=== PATIENT | male | born 1960 | race African-American/Black ===

== ENCOUNTER 2024-06-15 09:11 | Emergency (ER) | payer OTHER, SELFPAY ==
--- NOTE | ~2024-06-15 | XR_ITS ---
EXAMINATION: XR chest 2V DATE: 06/15/2024 10:22 INDICATION: Cough and shortness of breath TECHNIQUE: PA and lateral views of the chest were obtained. COMPARISON: Chest radiograph dated 07/06/2015 FINDINGS: Unchanged small calcified nodule at the right upper lung zone consistent with old granulomatous disea se. The lungs are otherwise clear with no focal airspace opacities, pulmonary edema, pleural effusion or pneumothorax. The cardiomediastinal silhouette is normal. Visualized bones and soft tissues are u nremarkable. IMPRESSION: 1. No acute cardiopulmonary disease. Reviewed, dictated and finalized at location A. 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
[2024-06-15 09:23] VITALS: BP 118/70; PULSE 82; RESP 16; TEMP 35.9; O2SAT 100
--- NOTE | 2024-06-15 09:44 | ED.URI ---
HPI - URI/Sore Throat General Chief Complaint: Upper Respiratory Infection Stated Complaint: SOB/COUGH Time Seen by Provider: 06/15/24 09:44 Source: patient, RN notes reviewed and old records reviewed Mode of arrival: ambulatory Limitations: no limitations History of Present Illness HPI Narrative: 63 year old male who presents to [facility] care with complaints of cough and shortness of breath for the past 3-4 days. He states that he had Influenza on the 06 of June and did receive Tamiflu.Patient reports that he has an old Albuterol inhaler at home and he did use it yesterday. He has also been taking Mucinex max daily. MD elicited complaint: cough and other (shortness of breath) Pertinent past history: other (recent influenza A) Onset (ago): day(s) (3-4) Severity: moderate Able to tolerate fluids by mouth: Yes Treatments prior to arrival: other (Mucinex and used inhaler he had at home yesterday) Related Data Home Medications ?Medication ?Instructions ?Recorded ?Confirmed ?Last Taken ?Type albuterol sulfate 90 mcg/actuation 1 puff inhalation Q4H PRN 04/23/19 05/07/19 Unknown History aerosol inhaler spironolactone 25 mg tablet mg 06/15/24 Unknown History Allergies Allergy/AdvReac Type Severity Reaction Status Date / Time No Known Allergies Allergy Verified 06/15/24 09:25 Review of Systems Review of Systems: CONSTITUTIONAL: Denies malaise, chills, sweats, or fever. EYES: Denies visual changes, redness, or discharge. ENT: Reports rhinorrhea, congestion, sinus pain,no otalgia and no sore throat. CARDIOVASCULAR: Denies chest pain, palpitations, or edema. RESPIRATORY: Reports cough.? Reports dyspnea at rest and with exertion. GASTROINTESTINAL: Denies abdominal pain, nausea, vomiting, diarrhea SKIN: Denies rash or itching. MUSCULOSKELETAL: Denies myalgia. NEUROLOGIC: Denies headache. All systems reviewed & are unremarkable except as noted in HPI and below PMFSH Past Medical History Medical History (Updated 06/16/24 @ 08:14 by Wendy Del Cid NP) BPH (benign prostatic hyperplasia) Hyperlipidemia Hypertension Family History Family History Mother Patient's mother is , Onset Age: 54 Father Family history of cardiovascular disease, Onset Age: 72 Social History Social History (Updated 06/16/24 @ 08:15 by Wendy Del Cid NP) Smoking status: Never smoker Alcohol intake: never Substance use type: does not use Living arrangements: with family Gender identity (if verbalized by the patient): Male Comments At time of signature, agree with nursing past medical, surgical, social and family history. There is no relevant family history pertinent to the presenting complaint Exam Narrative: GENERAL: ill-appearing, well-nourished, and in no acute distress. HEAD: Normocephalic EYES: PERRLA, conjunctivae clear ENT: Nares clear, turbinates edematous and erythematous, clear discharge. Mucous membranes moist. TM pearly ross with dull light reflex bilaterally; no tragal tenderness. Oropharynx erythematous without lesions. Tonsils not enlarged and without exudate, no drooling, no hoarseness, no trismus, uvula midline.post nasal drainage. NECK: Supple. No lymphadenopathy CHEST: Scattered wheezes throughout on auscultation, breath sounds equal.+ wheezing,no rhonchi, rales, or stridor. No respiratory distress, speaks in full sentences. some dyspnea noted at rest no retractions, no tachypnea HEART: Regular rate and rhythm. No murmur heard. SKIN: Warm, dry, no rash. NEURO: Alert and oriented x3. PSYCH: Normal mood and affect Course Course Emergency Course: Patient is aware of diagnosis, understands and agrees to treatment plan.? Anticipatory guidance given.? Patient agrees to follow-up as directed and is aware of reasons to seek care at the emergency department. Portions of this record may have been created with voice recognition software Level of Care: Express Care Visit Vital Signs Vital signs: Vital Signs Temperature 35.9 C L 06/15/24 09:23 Pulse Rate 82 06/15/24 09:23 Respiratory Rate 16 06/15/24 09:23 Blood Pressure 118/70 06/15/24 09:23 Pulse Oximetry 100 06/15/24 09:23 Temperature 35.9 C L 06/15/24 09:23 Pulse Rate 86 06/15/24 10:27 Respiratory Rate 20 06/15/24 10:27 Blood Pressure 118/70 06/15/24 09:23 Pulse Oximetry 96 06/15/24 10:27 Reviewed MDM - URI/Sore Throat MDM Narrative Medical decision making narrative: Differential diagnosis considered: [place] virus, strep pharyngitis, allergic rhinitis, upper respiratory tract infection, sinusitis, rhinosinusitis, nasopharyngitis. viral pharyngitis, otitis media, otitis externa, pneumonia, bronchitis, viral cough syndrome, viral syndrome, and influenza.? Exam findings show no acute concerns or changes; patient is non-toxic appearing and is in no distress.? Patient is appropriate for outpatient treatment and follow-up. Patient received DUO nebulizer treatment while in clinic which help improve his aeration and decreased his wheezing. Differential Diagnosis Differential diagnosis: Likely upper respiratory infection, viral infection, bronchitis and other (acute cough with dyspnea) Medical Records Attestation: I reviewed the patient's medical records. Lab Data Attestation: I reviewed the patient's lab results. Imaging Data Attestation: I personally reviewed and interpreted this imaging study as follows: My impression: no acute cardiopulmonary findings Radiologist's impression: [address] [address] XRay Report Signed Patient: Mikhail Ball : 1960 MR#: [id number] Age: 63 Acct:[id number] Loc: [id number] ADM Date: 06/15/24Attending Dr: Ordering Physician: Wendy Del Cid APRN Date of Service: 06/15/24 Procedure(s): XR chest 2V Accession Number(s): [id number] cc: Miranda, Dimitris Coe MD; Wendy Del Cid APRN~ EXAMINATION: XR chest 2V DATE: 06/15/2024 10:22 INDICATION: Cough and shortness of breath TECHNIQUE: PA and lateral views of the chest were obtained. COMPARISON: Chest radiograph dated 07/06/2015 FINDINGS: Unchanged small calcified nodule at the right upper lung zone consistent with old granulomatous disease. The lungs are otherwise clear with no focal airspace opacities, pulmonary edema, pleural effusion or pneumothorax. The cardiomediastinal silhouette is normal. Visualized bones and soft tissues are unremarkable. IMPRESSION: 1. No acute cardiopulmonary disease. Reviewed, dictated and finalized at location A. [employer] Please be advised this is a medical document. It is intended for txxv-go-gnau communication. It is written in medical language and may contain unfamiliar abbreviations or verbiage. Medical documents are intended to carry relevant information, facts as evident, and the clinical opinion of the practitioner at the time of the encounter. This report may have been done utilizing a voice recognition system. Attempts have been made to correct errors. However, there may be uncorrected grammatical, spelling, and recognition errors present. The file time of this note does not necessarily represent the time of service. Dictated By: Luis Damian MD 06/15/24 1041 Signed By: <Electronically signed by Luis Damian MD in OV> Critical Care Time Critical Care Time Critical Care Time: No Discharge Plan Discharge Clinical Impression: Bronchitis Patient Disposition: Home, Self-Care Condition: Stable Instructions: Acute Bronchitis (ED) Additional Instructions: Increase fluids especially juices and water [id number] cough and cold medicine of your choice for your symptoms Mucinex daily must drink plenty of fluids while taking this medication Zyrtec Claritin or Valentine daily may include Coricidin brand disc decongestant Continue your inhaler/nebulizer as directed Steroids as directed--take with food heat to the face 20-30 minutes 4-6 times a day for pain Salt water gargles, throat lozenges or throat sprays as desired If your symptoms persist, change or worsen significantly before you can contact your personal physician then please, without delay, go to the emergency department for further evaluation. Follow-up with PCP in 7-10 days or sooner if needed Patient Language: Citizen Of [place] Prescriptions: New prednisone 20 mg tablet 20 mg PO BID Qty: 10 0RF albuterol sulfate [Ventolin HFA] 90 mcg/actuation HFA aerosol inhaler 2 puff inhalation QID PRN (Reason: shortness of breath or wheezing) Qty: 8.5 0RF Rx Instructions: whatever is covered with insurance Use this routinely for the next 2 days then as needed up to 4 times daily No Action spironolactone 25 mg tablet metoprolol succinate 25 mg tablet extended release 24 hr 25 mg PO DAILY Qty: 30 1RF albuterol sulfate 90 mcg/actuation HFA aerosol inhaler 1 puff INHALATION Q4H PRN valsartan 40 mg tablet 40 mg PO DAILY Qty: 90 0RF terazosin 5 mg capsule 5 mg PO .bedtime Qty: 90 0RF atorvastatin 20 mg tablet 20 mg PO DAILY Qty: 90 0RF Rx Instructions: take 1 tablet by mouth once daily hydrochlorothiazide 25 mg tablet 25 mg PO DAILY Qty: 90 4RF Follow-up/Referrals: Miranda,Dimitris Pereyra MD [Primary Care Provider] - Stand Alone Forms: Work/School Release IP Time of Disposition: 10:55 Quality Alvarez Coma Scale Eyes: Open Verbal: Oriented and Alert Motor: Follows Commands [place] Coma Total Score: 15
[2024-06-15] MEDS: IPRATROPIUM 0.5 MG/ALBUTEROL SULFATE 2.5 MG AMPUL.NEB 3 ML INHALATION (09:57)
[2024-06-15 10:27] VITALS: PULSE 86; RESP 20; O2SAT 96
--- NOTE | 2024-06-15 11:13 | PC.NURSE ---
1050 Patient sitting upright on cart and reports he is feeling much better; able to take deep breath much easier.
== END 2024-06-15 11:05 | disposition home or self-care (01) ==
PROVIDERS: Emergency Provider Registered Nurse; PCP Family Medicine
DX: J40 Bronchitis, not specified as acute or chronic (principal); N40.0 Benign prostatic hyperplasia without lower urinary tract symptoms; I10 Essential (primary) hypertension; E78.5 Hyperlipidemia, unspecified
CPT/HCPCS: 71046; 94640; 99213; G0463